=== PATIENT | male | born 1955 | race Caucasian/White ===

== ENCOUNTER 2017-09-22 05:50 | Inpatient (IN) | payer OTHER ==
--- NOTE | 2017-09-21 16:21 | GHP ---
[f rep st] PREOP HISTORY AND PHYSICAL DATE OF ADMISSION: 09/22/2017 HISTORY: The patient is a 62-year-old male who has multiple orthopedic concerns. Both of his hips are painful; so is his left knee. His left hip bothers him more than right. His hips are painful, have limited motion, alter his gait, impact exercise as well as activities of daily living, and he has tried conservative measures. His hip exam and his x-rays are consistent with severe left hip osteoarthritis. A left total hip arthroplasty is planned. PAST SURGICAL HISTORY: He has had 4 knee scopes on the left side. He has had an L3-4 lumbar fusion. ALLERGIES: He has no known drug allergies. MEDICATIONS: Include verapamil ER 120 mg extended release, acetazolamide ER 500 mg tablets, testosterone transdermal gel packet, diazepam 5 mg tablets on an as-needed basis, gabapentin, lamotrigine, sumatriptan 50 mg tablets. PAST MEDICAL HISTORY: His orthopedic procedures have been described. Does have history of migraines. REVIEW OF SYSTEMS: Negative for cardiopulmonary disease. PHYSICAL EXAM: GENERAL: The patient is a well-developed, well-nourished male in no apparent distress. HEAD AND NECK: Normocephalic, atraumatic. CHEST: Clear. CARDIOVASCULAR: Regular rate and rhythm. ABDOMEN: Soft. NEUROLOGICAL : He is alert and oriented x3. MUSCULOSKELETAL: Examination of the left hip shows limited motion. He has pain beyond 90 degrees of flexion. Internal rotation is very limited and painful. External rotation is more generous, also uncomfortable. He has just a short arc of abduction. His neurovascular exam is intact. SKIN: Intact. STUDIES: X-rays show a severely arthritic left hip. It is bone to bone in the weightbearing surface, and there is some lateral subluxation of the joint, degenerative lipping of the femoral head, subchondral sclerosis. IMPRESSION: Left hip osteoarthritis. PLANNED PROCEDURE: Left total hip arthroplasty. Benefits and risks of surgery have been reviewed with the patient. He understands that the risks include infection, damage to blood vessels or nerves, failure or loosening of components and need for revision, leg-length discrepancy, hip dislocation, blood clot in the leg or lung. He has signed his consent form and wishes to proceed. /[id number]/MODL MTDD
[~2017-09-22 05:50] MED LIST: POVIDONE-IODINE 20 ML in SODIUM CL IRRIG SOLUTION 500 ML IRR ONE; ROPIVACAINE 0.2% 80 MG, EPINEPHrine 0.2 MG, KETOROLAC TROMETHAMINE 30 MG in BAG 0 ML IU ONE
[2017-09-22] MEDS ORDERED: ACETAMINOPHEN 325 MG TAB PO ONE (06:13)
[2017-09-22] MEDS ORDERED: DEXAMETHASONE 4 MG/ML VIAL IVP ONE (06:13)
[2017-09-22] MEDS ORDERED: FAMOTIDINE 20 MG TAB PO ONE (06:13)
[2017-09-22] MEDS ORDERED: ceFAZolin 2 GM/SWFI 2 GM/20 ML SYR IVP ONE ×2 (06:13→06:15)
[2017-09-22] MEDS ORDERED: LR 1,000 ML IV ONE (06:40)
[2017-09-22] MEDS ORDERED: ceFAZolin 1 GM/5 ML SYR ONE (06:48)
[2017-09-22] MEDS ORDERED: TRANEXAMIC ACID 1,400 MG in NS 100 ML IV ONE (07:00)
[2017-09-22] MEDS ORDERED: ROPIVACAINE 0.2% 80 MG, EPINEPHrine 0.2 MG, KETOROLAC TROMETHAMINE 30 MG in BAG 0 ML IU ONE (07:00)
[2017-09-22] MEDS ORDERED: POVIDONE-IODINE 20 ML in SODIUM CL IRRIG SOLUTION 500 ML IRR ONE (07:00)
[2017-09-22] MEDS ORDERED: MIDAZOLAM 2 MG/2 ML VIAL IVP ONE (07:03)
--- NOTE | 2017-09-22 07:05 | PDANEPAE ---
ANE Past Medical History - Cardiovascular History Hx Hypertension: Yes Hx Arrhythmias: No Hx Chest Pain: No Hx Coronary Artery / Peripheral Vascular Disease: No Hx CHF / Valvular Disease: No Hx Palpitations: No Cardiovascular History Comment: LABILE HTN - MANAGED WITH DIET & EXERCISE - Pulmonary History Hx COPD: No Hx Asthma/Reactive Airway Disease: No Hx Recent Upper Respiratory Infection: No Hx Oxygen in Use at Home: No Hx Sleep Apnea: No Sleep Apnea Screening Result - Last Documented: Negative - Neurologic History Hx Cerebrovascular Accident: No Hx Seizures: No Hx Dementia: No Neurologic History Comment: MIGRAINES - CLUSTER 8/MONTH - Endocrine History Hx Diabetes: No - Renal History Hx Renal Disorders: No Renal History Comment: RENAL HTN - Liver History Hx Hepatic Disorders: No - Neurological & Psychiatric Hx Hx Neurological and Psychiatric Disorders: No - Cancer History Hx Cancer: No - Congenital Disorder History Hx Congenital Disorders: No - GI History Hx Gastrointestinal Disorders: No - Other Health History Other Health History: NEG - Chronic Pain History Chronic Pain: No - Surgical History Prior Surgeries: R ANKLE. L FOOT. L KNEE X4. LUMBAR FUSION ANE Review of Systems Review of Systems: - Exercise capacity Exercise capacity: >=4 METS METS (RN): 6 METS ANE Patient History - Allergies Allergies/Adverse Reactions: No Known Allergies Allergy (Unverified 04/04/15 07:15) - Home Medications Home Medications: Diazepam [Valium 5 MG (*)] 5 mg PO HS PRN 04/04/15 [Last Taken 09/18/17] hydrOXYzine HCL [Vistaril] 100 mg PO HS PRN 04/04/15 [Last Taken 09/15/17] Glucosamine Sulfate [Glucosamine Sulfate 500 MG (*)] 500 mg PO DAILY 08/25/17 [ Last Taken 09/15/17] Herbals/Supplements -Info Only 1 ea PO DAILY 08/25/17 [Last Taken 09/15/17] Multivitamins [Multivitamin (*)] 1 each PO DAILY 08/25/17 [Last Taken 09/15/17] Naproxen Sodium [Aleve 220 MG (*)] 220 mg PO BID PRN 08/25/17 [Last Taken ] SUMAtriptan [Imitrex 25 MG (*)] 25 - 50 mg PO DAILY PRN 08/25/17 [Last Taken ] - NPO status NPO Since - Liquids (Date): 09/21/17 NPO Since - Liquids (Time): 19:30 NPO Since - Solids (Date): 09/21/17 NPO Since - Solids (Time): 19:00 - Smoking Hx Smoking Status: Never smoked - Family Anes Hx Family Hx Anesthesia Complications: NEG ANE Labs/Vital Signs - Vital Signs Blood Pressure: 125/84 Heart Rate: 45 Respiratory Rate: 16 O2 Sat (%): 97 Height: 177.8 cm Weight: 70.307 kg ANE Physical Exam - Airway Neck exam: FROM Mallampati Score: Class 1 Mouth exam: normal dental/mouth exam - Pulmonary Pulmonary: no respiratory distress, no rales or rhonchi, clear to auscultation - Cardiovascular Cardiovascular: regular rate and rhythym, no murmur, rub, or gallop - ASA Status ASA Status: II ANE Anesthesia Plan Anesthesia Plan: spinal
[2017-09-22] MEDS ORDERED: BUPIVACAINE 0.5% 30 ML SDV ONE (07:15)
[2017-09-22] MEDS ORDERED: PROPOFOL/EMULSION 500 MG/50 ML BOTTLE IV ONE (07:17)
[2017-09-22] MEDS ORDERED: fentaNYL 100 MCG/2 ML INJ ONE (07:17)
[2017-09-22] MEDS ORDERED: ONDANSETRON 4 MG/2 ML VIAL IVP PRN ×2 (09:00→09:54)
[2017-09-22] MEDS ORDERED: PROMETHAZINE HCL 25 MG/ML INJ IVP PRN ×2 (09:00→09:54)
[2017-09-22] MEDS ORDERED: ENALAPRILAT DIHYDRATE 1.25 MG/ML VIAL IVP PRN (09:00)
[2017-09-22] MEDS ORDERED: OXYCODONE/APAP 5/325 TAB PO PRN (09:00)
[2017-09-22] MEDS ORDERED: LR 500 ML IV PRN (09:00)
[2017-09-22] MEDS ORDERED: NALOXONE HCL 0.4 MG/ML INJ IVP PRN (09:00)
[2017-09-22] MEDS ORDERED: ACETAMINOPHEN 500 MG TAB PO PRN (09:00)
[2017-09-22] MEDS ORDERED: fentaNYL 100 MCG/2 ML INJ IVP PRN (09:00)
[2017-09-22] MEDS ORDERED: PROMETHAZINE HCL 25 MG SUPPR PR PRN (09:54)
[2017-09-22] MEDS ORDERED: LACTULOSE 20 GM/30 ML UDCUP PO PRN (09:54)
[2017-09-22] MEDS ORDERED: TEMAZEPAM 15 MG CAP PO PRN (09:54)
[2017-09-22] MEDS ORDERED: POLYETHYLENE GLYCOL 3350 17 GM PKT PO PRN (09:54)
[2017-09-22] MEDS ORDERED: diphenhydrAMINE 25 MG CAP PO PRN (09:54)
[2017-09-22] MEDS ORDERED: METOCLOPRAMIDE 10 MG/2 ML VIAL IVP PRN (09:54)
[2017-09-22] MEDS ORDERED: DIPHENOXYLATE/ATROPINE LOMOTIL 1 TAB PO PRN (09:54)
[2017-09-22] MEDS ORDERED: MAGNESIUM HYDROXIDE 30 ML UDCUP PO PRN (09:54)
[2017-09-22] MEDS ORDERED: KETOROLAC 30 MG/1 ML SDV IVP PRN (09:54)
[2017-09-22] MEDS ORDERED: CYCLOBENZAPRINE 10 MG TAB PO PRN (09:54)
[2017-09-22] MEDS ORDERED: ONDANSETRON DISINTEGRATING 4 MG TAB PO PRN (09:54)
[2017-09-22] MEDS ORDERED: BISACODYL 10 MG SUPP PR PRN (09:54)
[2017-09-22] MEDS ORDERED: hydrOXYzine HCL 50 MG TAB PO PRN (09:57)
[2017-09-22] MEDS ORDERED: LR 1,000 ML IV SCH (10:00)
--- NOTE | 2017-09-22 10:03 | POSTANESTH ---
Post Anesthetic Evaluation Cardiovascular Status: Normal, Stable Respiratory Status: Normal, Stable, Similar to Pre-op Cond. Level of Consciousness/Mental Status: Can Participate in Eval, Mildly Sleepy, Arousable Pain Control: Adequate, Prn Tx Ordered Nausea/Vomiting Control: Adequate, Prn Tx Ordered Complications Possibly Related to Anesthesia: None Noted
--- NOTE | 2017-09-22 10:29 | GOP ---
[f rep st] OPERATIVE REPORT DATE OF OPERATION: SURGEON: Aaron Candelaria MD SUPERVISOR [employer]: Nikolai Simental CSFA, LSA ANESTHESIA: Spinal with IV sedation. ANESTHESIOLOGIST: Aaron Hull MD. PREOPERATIVE DIAGNOSIS: Left hip osteoarthritis. POSTOPERATIVE DIAGNOSIS: Left hip osteoarthritis. PROCEDURE PERFORMED: Left total hip arthroplasty. FINDINGS: SPECIMENS: Include excised bone. ESTIMATED BLOOD LOSS: Less than 50 cc. INDICATIONS: This patient is a 62-year-old male who presents with history, exam and plain radiograph s consistent with severe left hip osteoarthritis, [id number] in the weightbearing dome with subchon dral sclerosis, degenerative lipping and some lateralization of the head. He has tried conservative measures. He has limited motion, abnormalities of his gait. This impacts his activities of daily li ving. He has elected to proceed with a left total hip arthroplasty. DESCRIPTION OF PROCEDURE: The patient was taken to the operating room, and a spinal anesthetic was a dministered by Dr. Hull. He received preoperative antibiotics, also tranexamic acid. He was placed in the right lateral decubitus position on a pegboard. All bony prominences were well padded. We u sed an axillary roll, and the left lower extremity was prepped and draped free in the usual fashion; a chlorhexidine prep was used. I used a posterior approach to the hip with a gently curving incision just posterior to the greater trochanter. Dissection was carried out through the subcutaneous tissu e. I incised through the IT band and carried this through the trochanteric bursa into the gluteal fa scia. In a slender person, this was an easy dissection to reveal the short rotators. The sciatic ne rve was identified and preserved throughout. I placed a number of tag sutures in the short rotators, including the piriformis. I opened the capsule and tagged the edge of the capsule. I placed a pin above the acetabulum and a drill point in the greater trochanter, and made a predislocation leg lengt h measurement. The hip was then gently dislocated. I made a neck cut using the neck cutting guide, leaving about 15 mm of calcar based on preoperative planning. I placed anterior and posterior acetab ular retractors. I debrided the labrum. I started with reamers around 50, deepened the socket which was dysplastic down to the true floor, then progressively enlarged to a 53, and this showed a 54 Reg enerex Biomet cup with limited holes superiorly, and this was driven into place in about 40 degrees o f abduction and 20 degrees of anteversion. This was a sound fit. I placed a trial liner. We expose d the proximal femur, entered the canal with an awl, used a lateralizing reamer, and I sequentially s tarted broaching from around 4 up to a size 15, which was a solid fit and was rotationally stable. I did trial reductions to make sure I could establish appropriate stability and leg lengths. I went b ack to the acetabulum and placed a +3 Max-Rom vitamin E infused crosslink polyethylene liner. I drov e a standard offset size 15 Taperloc complete femoral stem porous-coated. I then repeated trial redu ctions. I used a 36 ceramic head, +6 neck. This provided excellent stability. My goal was to not l engthen, but maintain his length, and the measurements showed that we had equalized his length and pr oduced good stability. Antibiotic irrigation was used, including a Betadine rinse. I drilled 2 hole s in the posterior aspect of the trochanter, threaded my FiberWire sutures through it to repair in 2 layers capsule and rotators. Tissue approximation was good, and it was a good soft tissue repair pos teriorly. The nerve was checked, it looked fine. No drain was needed. I closed the fascia with int errupted [id number] sutures of 0 Mersilene, subcutaneous tissue with 2-0 Monocryl, and the skin with Monoderm, glue, Telfa and Tegaderm. There were no complications. All counts were correct. The patient was taken in stable condition to recovery. DRAINS: None. SUMMARY OF COMPONENTS: This is a Biomet Total Hip System, all components Press-Fit. The acetabulum is a Regenerex 54. I used a +3 Max-Rom vitamin E crosslinked poly liner to accommodate a 36 head. T he stem is a 15 Taperloc complete primary femoral stem, standard offset. I used a +6, 36 diameter ce ramic head. My assembler surgical garment was a medical necessity for this total hip replacement. /[id number]/MODL
[2017-09-22] MEDS: ACETAMINOPHEN 325 MG TAB PO SCH ×3 (12:46→23:31)
[2017-09-22] MEDS ORDERED: SUMAtriptan 25 MG TAB PO PRN (14:51)
[2017-09-22] MEDS: ceFAZolin 2 GM/DEXTROSE 100 ML IV SCH ×2 (16:51→23:31)
[2017-09-22] MEDS: SENNOSIDES/DOCUSATE SODIUM TAB PO SCH (20:33)
[2017-09-22] MEDS: oxyCODONE IR 5 MG TAB PO PRN (20:33)
[2017-09-22] MEDS: FAMOTIDINE 20 MG TAB PO SCH (20:34)
[2017-09-22] MEDS: ASPIRIN 325 MG TAB PO SCH (22:44)
[2017-09-23] MEDS: oxyCODONE IR 5 MG TAB PO PRN (02:16)
[2017-09-23 05:02] LABS: HEMOGLOBIN 13.3 g/dL (13.7-17.5)
[2017-09-23] MEDS: ACETAMINOPHEN 325 MG TAB PO SCH ×2 (05:55→12:38)
[2017-09-23 07:45] VITALS: RESP 12; TEMP 98.8
--- NOTE | 2017-09-23 08:28 | SOAPPROG ---
SOAP Progress Note Assessment/Plan: Assessment: 09/23/17 POD #1 L SOPHIE, pain controlled. Hct 37, dressing clean Plan: 09/23/17 08:26 PT/OT, home, oxy asa, out pt PT Objective: Vital Signs Temp Pulse Resp BP Pulse Ox 37.1 C 45 L 12 103/68 96 09/23/17 07:41 09/23/17 07:41 09/23/17 07:41 09/23/17 07:41 09/23/17 07:41 Laboratory Results 09/23/17 04:38 09/22/17 09/23/17 09/24/17 05:59 05:59 05:59 Intake Total 1900 Output Total 1845 200 Balance 55 -200 ICD10 Worksheet Patient Problems: Problems Problem Status Onset Osteoarthritis of left hip Acute - ICD10 Problem Qualifiers (1) Osteoarthritis of left hip
[2017-09-23] MEDS: SENNOSIDES/DOCUSATE SODIUM TAB PO SCH (08:31)
[2017-09-23] MEDS: ASPIRIN 325 MG TAB PO SCH (08:32)
[2017-09-23] MEDS: FAMOTIDINE 20 MG TAB PO SCH (08:32)
[2017-09-23 11:25] VITALS: BP 132/85; PULSE 56; O2SAT 97
--- NOTE | 2017-09-23 15:57 | ASDISCHSUM ---
Discharge Information Plan Status:Home with No Needs Medically Cleared to Leave: Discharge Date:09/23/2017 01:06 PM CM D/C Disposition:Home, Routine, Self-Care ADT D/C Disposition:Home, Routine, Self-Care Projected Discharge Date:09/23/2017 01:06 PM Transportation at D/C: Discharge Delay Reason: Follow-Up Date:09/23/2017 01:06 PM Discharge Slot: Final Diagnosis: Placement Information Patient Contact Information Contact Name:COTY Relationship: Address:[address] City:[place] Alternate Phone: [facility]/Zip Code:[place] [address] Email: Financial Information Financial Class:[employer] Primary Plan Desc:[employer] H[employer] OPEN ACC LOCAL Primary Plan Number:[id number] Secondary Plan Desc: Secondary Plan Number: Assessment Information Intervention Information
== END 2017-09-23 13:06 | disposition home or self-care (01) | DRG 470 ==
LOC: F3N 05:50
PROVIDERS: ADMIT Orthopaedic Surgery; ATTEND Orthopaedic Surgery
PROC: 0SRB0JZ Replacement of Left Hip Joint with Synthetic Substitute, Open Approach (ICD-10-PCS; principal; 2017-09-22 07:15)
DX: M16.12 Unilateral primary osteoarthritis, left hip (principal); I10 Essential (primary) hypertension; G43.909 Migraine, unspecified, not intractable, without status migrainosus
CPT/HCPCS: 97110-GP; 97116-GP; 97161-GP; 97165-GO; 97530-GP; J0171; J0690; J1100; J1885; J2250; J2704; J2795; J3010